=== PATIENT | male | born 1960 | race African-American/Black ===

== ENCOUNTER 2017-10-11 23:13 | Emergency (ER) | payer MEDICAID ==
[~2017-10-11] VITALS: Ht 180.3 cm; Wt 136.1 kg
[2017-10-11 23:17] VITALS: BP_SYST 172; BP_SYST 182; BP_DIAS 104; BP_DIAS 111
--- NOTE | 2017-10-11 23:18 | NUR ---
JAMES DOYLE MADE AWARE OF PT STATUS
--- NOTE | 2017-10-11 23:45 | NUR ---
Pt presents to ED with generalized weakness via EMS. Pt is alert to name but lethargic. He is ambulatory and states using assistive walking device at home. Pt cannot keep his eyes open long enough to answer questions once he was placed in bed. He can swallow meds po. He understands concepts and obeys commands but is otherwise lethargic and requires rousal with delayed awakening and verbal response. His upper torso and arms are covered in multiple circular dry spots. VSS. ER MD aware. Continue to monitor.
--- NOTE | 2017-10-11 23:45 | NUR ---
PT W/C TO ER BED 4
[2017-10-11] MEDS: ASPIRIN 325 MG TAB PO ONE (23:54)
[2017-10-11] MEDS: ACETAMINOPHEN EXTRA STRENGTH 500 MG TAB PO ONE (23:55)
[2017-10-12 00:17] LABS: ANION GAP 10.8 (8-16); CARBON DIOXIDE 30.9 mmol/L (21-32); CREATININE 0.8 mg/dL (0.7-1.3); POTASSIUM 3.7 mmol/L (3.5-5.1)
[2017-10-12 00:23] LABS: ALBUMIN 3.6 g/dL (3.4-5.0); TOTAL BILIRUBIN 0.8 mg/dL (0.0-1.0)
--- NOTE | 2017-10-12 00:32 | NUR ---
Pt report given to [facility]. Transfer of care at this time.
[2017-10-12 00:35] LABS: BASOPHILS # (AUTO) 0.1 K/uL (0.00-0.22); BASOPHILS % (AUTO) 1.7 % (0.0-2.0); EOSINOPHILS % (AUTO) 0.6 % (0.0-4.0); HEMATOCRIT 40.9 % (36-52); HEMOGLOBIN 13.6 g/dL (12.0-18.0); LYMPHOCYTES # (AUTO) 0.4 K/uL (2.0-11.5); MEAN CORPUSCULAR HEMOGLOBIN 30 pg (27-31); MEAN CORPUSCULAR HGB CONC 33 g/dL (33-37); MEAN CORPUSCULAR VOLUME 91 fL (80-94); MONOCYTES # (AUTO) 0.2 K/uL (0.8-1.0); MONOCYTES % (AUTO) 3.7 % (1.7-9.3); NEUTROPHILS # (AUTO) 5.3 K/uL (1.8-7.7); NEUTROPHILS % (AUTO) 86.9 % (42.2-75.2); PLATELET COUNT (AUTO) 285 K/uL (140-450); RED BLOOD CELL COUNT(AUTO) 4.51 MIL/uL (4.20-6.10); RED CELL DISTRIBUTION WIDTH 13.1 % (11.6-13.7)
[2017-10-12 00:52] LABS: LYMPHOCYTES % (AUTO) 7.1 % (20.5-51.1)
[2017-10-12 00:54] LABS: BARBITURATE, URINE NEG. ng/ml (NEG <=200); BENZODIAZEPINE, URINE NEG. ng/mL (NEG <=200); CANNABINOID, URINE POS. ng/mL (NEG <=50); COCAINE, URINE NEG. ng/mL (NEG <=300); OPIATE, URINE NEG. ng/mL (NEG <=2000); PHENCYCLIDINE SCREEN,URINE NEG. ng/mL (NEG <=25)
[2017-10-12 02:21] VITALS: BP 172/111
--- NOTE | 2017-10-12 02:21 | NUR ---
Patient discharged with v/s stable. Written and verbal after care instructions given and explained. Patient verbalized understanding. Wheel Chair Assisted with to home. All questions addressed prior to discharge. Advised to follow up with PMD.
== END 2017-10-12 02:21 | disposition home or self-care (01) ==
LOC: MED 23:13
DX: R53.1 Weakness (principal); F15.10 Other stimulant abuse, uncomplicated; R94.31 Abnormal electrocardiogram [ECG] [EKG]
CPT/HCPCS: 36415; 71045; 80053; 80305; 83880; 84484; 85025; 85610; 85730; 93005; 99285

== ENCOUNTER 2018-08-07 16:35 | Emergency (ER) | payer MEDICAID ==
[~2018-08-07] VITALS: Ht 180.3 cm; Wt 131.5 kg
--- NOTE | 2018-08-07 16:38 | NUR ---
PT BIBA ALS TO BED 5
[2018-08-07 16:48] VITALS: BP 117/76
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
--- NOTE | 2018-08-07 17:21 | NUR ---
Patient being evaluated by physician at bedside.
[2018-08-07 17:50] VITALS: BP 117/76
--- NOTE | 2018-08-07 17:51 | NUR ---
PATIENT BIB [place] [employer]. PATIENT EXAMINED BY . PATIENT MEDICALLY CLEARED AND RELEASED IN CUSTODY IN STABLE CONDITION. ORIGINAL PRE-BOOK FORM GIVEN TO OFFICER .
== END 2018-08-07 17:51 ==
LOC: MED 16:35
DX: F19.10 Other psychoactive substance abuse, uncomplicated (principal)
CPT/HCPCS: 99283